=== PATIENT | male | born 1950 | race African-American/Black ===

== ENCOUNTER 2022-07-25 13:46 | Emergency (ER) | payer MEDICARE, OTHER ==
[2022-07-25 14:32] LABS: #Basophils 0.2 thou/uL (0.0-0.2); #Eosinphils 0.1 thou/uL (0.0-0.7); #Lymphocytes 1.1 thou/uL (1.20-3.40); #Monocytes 0.7 thou/uL (0.11-0.59); #Neutrophils 8.9 thou/uL (1.40-6.50); %Basophils 1.9 % (0.0-1.0); %Eosinophils 0.9 % (0.0-10.0); %Lymphocytes 10.1 % (21.0-51.0); %Monocytes 6.4 % (0.0-10.0); %Neutrophils 80.6 % (42.0-75.0); Hemoglobin 12.3 g/dL (14.0-18.0); Mean Corpuscular HGB CONC 31.1 g/dL (32.0-36.0); Mean Corpuscular Hemoglobin 27.7 pg (27.0-31.0); Mean Corpuscular Volume 89.1 fl (78.0-98.0); Mean Platelet Volume 6.1 fL (7.4-10.4); Platelet Count 409 10x3/uL (130-400); RBC Distribution Width 16.2 % (11.5-14.5); Red Blood Cell (RBC) Count 4.44 mill/uL (4.70-6.10)
[2022-07-25 14:48] LABS: ALT (SGPT) 177 U/L (8-55); AST (SGOT) 281 U/L (5-34); Albumin 4.1 g/dL (3.4-4.8); Alkaline Phosphatase 133 U/L (40-110); Anion Gap 16 mmol/L (10-20); BUN (Urea Nitrogen) 11 mg/dL (8.4-25.7); Bilirubin, Total 1.6 mg/dL (0.2-1.2); Calc. Creatinine Clearance 0 mL/min (70-130); Calcium 9.9 mg/dL (7.8-10.44); Carbon Dioxide 26 mmol/L (23-31); Chloride 100 mmol/L (98-107); Estimated GFR 69; Globulin 4.8 g/dL (2.4-3.5); Glucose 110 mg/dL (83-110); Potassium 3.5 mmol/L (3.5-5.1); Protein, Total 8.9 g/dL (5.8-8.1); Sodium 138 mmol/L (136-145)
[2022-07-25] MEDS ORDERED: Ondansetron PF 4 MG/2 ML Vial ONE (14:56)
[2022-07-25] MEDS ORDERED: Morphine 4 MG/ML VIAL ONE (14:56)
[2022-07-25 15:05] LABS: Lipase 9983 U/L (8-78)
[2022-07-25] MEDS ORDERED: Iopamidol 370 76% 100 ML VIAL ONE (16:12)
[2022-07-25 17:33] LABS: Cardiac Risk 3.1 (Less than 4.5)
== END 2022-07-25 19:22 | disposition short-term general hospital (02) ==
LOC: BURERS 13:46
DX: K85.90 Acute pancreatitis without necrosis or infection, unspecified (principal); R00.1 Bradycardia, unspecified; I10 Essential (primary) hypertension; E78.5 Hyperlipidemia, unspecified; Z79.899 Other long term (current) drug therapy; Z79.82 Long term (current) use of aspirin
CPT/HCPCS: 71045; 74177; 80053; 80061; 83605; 83690; 84484; 85025; 93005; 96361; 96374; 96375; J2270; J2405; Q9967